=== PATIENT | female | born 1980 | race Caucasian/White ===

== ENCOUNTER → 2022-11-11 | Outpatient (CLI) | payer OTHER | END | disposition home or self-care (01) | LOC: MRI 09:49 | PROVIDERS: ATTEND Podiatrist Primary Podiatric Medicine | DX: R60.0 Localized edema (principal); M25.571 Pain in right ankle and joints of right foot ==

== ENCOUNTER 2025-10-05 10:31 | Emergency (ER) | payer OTHER ==
[~2025-10-05] VITALS: Ht 165.1 cm; Wt 83.9 kg
== END 2025-10-05 11:24 | disposition home or self-care (01) ==
LOC: ED 10:31
PROVIDERS: Nurse Practitioner Family
DX: Z77.21 Contact with and (suspected) exposure to potentially hazardous body fluids (principal)